=== PATIENT | female | born 1985 | race Caucasian/White ===

== ENCOUNTER 2019-02-15 23:18 | Emergency (ER) | payer MEDICAID ==
[~2019-02-15] VITALS: Ht 167.6 cm; Wt 48.3 kg
[2019-02-15 23:41] VITALS: Ht 167.6 cm; Wt 48.3 kg
[2019-02-16 00:23] LABS: BASOPHIL % 0.3 % (0-2); PLATELET COUNT 194 x10^3mcL (130-400); RED CELL DISTRIBUTION WIDTH 12.7 % (11.5-14.5)
[2019-02-16 00:32] LABS: CALCIUM 8.4 mg/dL (8.5-10.1); CARBON DIOXIDE 27.6 mmol/L (21-32); CHLORIDE SERUM 105 mmol/L (98-107); CREATININE SERUM 0.8 mg/dL (0.6-1.0); GFR1 > 60 mL/min; GLUCOSE SERUM 115 mg/dL (74-106); POTASSIUM SERUM 3.4 mmol/L (3.5-5.1); SODIUM SERUM 141 mmol/L (136-145)
[2019-02-16 00:39] LABS: ALKALINE PHOSPHATASE 175 U/L (46-116); ALT/SGPT 156 U/L (14-59); AST/SGOT 139 U/L (15-37); BILIRUBIN TOTAL 0.6 mg/dL (0.20-1.00); LIPASE 189 IU/L (73-393); TOTAL PROTEIN, SERUM 7.5 g/dL (6.4-8.2)
[2019-02-16 00:42] LABS: ALBUMIN 3.1 g/dL (3.4-5.0)
[2019-02-16 01:50] VITALS: BP 104/65
== END 2019-02-16 01:50 | disposition home or self-care (01) ==
LOC: ED 23:18
PROVIDERS: Emergency Medicine
DX: K59.00 Constipation, unspecified (principal); R10.13 Epigastric pain; R11.10 Vomiting, unspecified
CPT/HCPCS: J2270; J2405; J7030